=== PATIENT | female | born 1935 | race Two or more races ===

== ENCOUNTER 2021-02-16 10:15 | Outpatient (CLI) | payer MEDICARE | END 2021-02-16 23:59 | disposition home or self-care (01) | LOC: MSC 10:15 | PROVIDERS: ATTEND Internal Medicine | DX: G62.9 Polyneuropathy, unspecified (principal); Z76.0 Encounter for issue of repeat prescription; H66.90 Otitis media, unspecified, unspecified ear; E78.2 Mixed hyperlipidemia; N18.30 Chronic kidney disease, stage 3 unspecified; E03.9 Hypothyroidism, unspecified; G47.00 Insomnia, unspecified; Z79.899 Other long term (current) drug therapy ==